=== PATIENT | male | born 2000 | race Caucasian/White ===

== ENCOUNTER 2020-12-06 05:55 | Emergency (ER) | payer OTHER ==
[2020-12-06 06:06] VITALS: BP 116/72; PULSE 86; RESP 18; TEMP 97.9
--- NOTE | 2020-12-06 06:26 | ED ---
Extremity Problem HPI - General Chief complaint: Extremity Problem,Nontraumatic Stated complaint: arm numbness Time Seen by Provider: 12/06/20 06:13 Source: patient, RN notes reviewed Mode of arrival: ambulatory Limitations: no limitations - History of Present Illness Initial comments: This a 20-year-old male presents emergency Department with chief complaint of left wrist weakness. Patient states he woke up to this yesterday after he reports he was "blackout drunk". Patient states he woke up with her sisters and was tingling. Patient states that his wrist feels very weak states he feels that he cannot lift up. He states she's never had any like this in the past no head neck or shoulder pain. - Related Data Previous Rx's Medication Instructions Recorded Ibuprofen [Motrin] 600 mg PO Q8HR PRN #20 tab 12/06/20 Allergies Allergy/AdvReac Type Severity Reaction Status Date / Time No Known Allergies Allergy Verified 12/06/20 06:06 Review of Systems ROS Statement: Those systems with pertinent positive or pertinent negative responses have been documented in the HPI. ROS Other: All systems not noted in ROS Statement are negative. Past Medical History Past Medical History: No Reported History History of Any Multi-Drug Resistant Organisms: None Reported Past Surgical History: No Surgical Hx Reported Past Psychological History: No Psychological Hx Reported Smoking Status: Current every day smoker Past Alcohol Use History: Abuse, Daily, Heavy Past Drug Use History: None Reported General Exam Limitations: no limitations General appearance: alert, in no apparent distress Head exam: Present: atraumatic, normocephalic, normal inspection Neck exam: Present: normal inspection, full ROM. Absent: tenderness, meningismus, lymphadenopathy Respiratory exam: Present: normal lung sounds bilaterally. Absent: respiratory distress, wheezes, rales, rhonchi, stridor Cardiovascular Exam: Present: regular rate, normal rhythm, normal heart sounds. Absent: systolic murmur, diastolic murmur, rubs, gallop, clicks Extremities exam: Present: other (Left arm there is noted weakness at the left wrist especially with wrist extension. Neurovascular intact no evidence of elbow or shoulder full range of motion) Course Vital Signs 12/06/20 06:01 Temperature 97.9 F Pulse Rate 86 Respiratory 18 Rate Blood Pressure 116/72 O2 Sat by Pulse 98 Oximetry Medical Decision Making - Medical Decision Making 19-year-old male presented for left wrist weakness. Patient has radial nerve palsy. Patient will follow-up with orthopedics. Return parameters were discussed. Disposition Clinical Impression: Acute radial nerve palsy of left upper extremity Disposition: HOME SELF-CARE Condition: Stable Instructions (If sedation given, give patient instructions): Radial Nerve Palsy (ED) Additional Instructions: Please return to the Emergency Department if symptoms worsen or any other concerns. Prescriptions: Ibuprofen [Motrin] 600 mg PO Q8HR PRN #20 tab PRN Reason: Pain Is patient prescribed a controlled substance at d/c from ED?: No Referrals: None,Stated [Primary Care Provider] - 1-2 days Diego Guevara DO [Doctor of Osteopathic Medicine] - 1-2 days Time of Disposition: 06:26
== END 2020-12-06 06:29 | disposition home or self-care (01) ==
LOC: EC 05:55
DX: G56.32 Lesion of radial nerve, left upper limb (principal); F17.200 Nicotine dependence, unspecified, uncomplicated
CPT/HCPCS: 99284

== ENCOUNTER 2020-12-09 09:58 | Emergency (ER) | payer OTHER ==
[2020-12-09 10:01] VITALS: BP 130/78; PULSE 72; RESP 18; TEMP 98
--- NOTE | 2020-12-09 10:30 | ED ---
Upper Extremity HPI - General Chief Complaint: Extremity Injury, Upper Stated Complaint: Radial Palsy Lt Arm Time Seen by Provider: 12/09/20 10:02 Source: patient Mode of arrival: ambulatory Limitations: no limitations - History of Present Illness Initial Comments: 20-year-old male presents to emergency Department with a chief complaint of left arm nerve palsy. Patient states recently he was diagnosed with radial nerve palsy after he fell asleep after drinking in an awkward position. He states now he has developed wristdrop in the left arm. Patient states made an appointment with aircraft engine specialist they will see them at the end of December. He denies any pain but he is concerned whether he should continue working at his job. Otherwise he has no other complaints. - Related Data Previous Rx's Medication Instructions Recorded Ibuprofen [Motrin] 600 mg PO Q8HR PRN #20 tab 12/06/20 Allergies Allergy/AdvReac Type Severity Reaction Status Date / Time No Known Allergies Allergy Verified 12/09/20 09:59 Review of Systems ROS Statement: Those systems with pertinent positive or pertinent negative responses have been documented in the HPI. ROS Other: All systems not noted in ROS Statement are negative. Past Medical History Past Medical History: No Reported History History of Any Multi-Drug Resistant Organisms: None Reported Past Surgical History: No Surgical Hx Reported Past Psychological History: No Psychological Hx Reported Smoking Status: Current every day smoker Past Alcohol Use History: Abuse, Daily, Heavy Past Drug Use History: Marijuana General Exam Limitations: no limitations General appearance: alert, in no apparent distress Head exam: Present: atraumatic, normocephalic, normal inspection Eye exam: Present: normal appearance Pupils: Present: normal accommodation ENT exam: Present: normal exam, normal oropharynx, mucous membranes moist Neck exam: Present: normal inspection, full ROM Respiratory exam: Present: normal lung sounds bilaterally. Absent: respiratory distress Cardiovascular Exam: Present: regular rate, normal rhythm, normal heart sounds Extremities exam: Present: normal inspection, normal capillary refill. Absent: full ROM (Wristdrop, left arm.), tenderness Back exam: Present: normal inspection, full ROM. Absent: tenderness Neurological exam: Present: alert, oriented X3 Psychiatric exam: Present: normal affect, normal mood Skin exam: Present: warm, dry, intact, normal color Course Vital Signs 12/09/20 09:59 Temperature 98 F Pulse Rate 72 Respiratory 18 Rate Blood Pressure 130/78 O2 Sat by Pulse 99 Oximetry Medical Decision Making - Medical Decision Making 20-year-old male presenting to emergency Department with a chief complaint of nerve palsy. Physical examination, he has left-sided reendorsed palsy. Wristdrop noted. Patient was recently diagnosed. He is to follow-up with aircraft engine specialist again of the month. Patient is essentially here for a work note that would limit his use of the left arm. I wrote the work note. Case discussed with physician. Disposition Clinical Impression: Acute radial nerve palsy of left upper extremity Disposition: HOME SELF-CARE Condition: Stable Instructions (If sedation given, give patient instructions): Radial Nerve Palsy (ED) Additional Instructions: Follow-up with aircraft engine specialist. Return to emergency department if symptoms worsen. Is patient prescribed a controlled substance at d/c from ED?: No Referrals: None,Stated [Primary Care Provider] - 1-2 days Jagdeep Cassidy MD [STAFF PHYSICIAN] - 1-2 days Time of Disposition: 10:30
== END 2020-12-09 10:40 | disposition home or self-care (01) ==
LOC: EC 09:58
DX: G56.32 Lesion of radial nerve, left upper limb (principal); F17.200 Nicotine dependence, unspecified, uncomplicated; F12.90 Cannabis use, unspecified, uncomplicated
CPT/HCPCS: 99284